=== PATIENT | female | born 1970 | race Caucasian/White ===

== ENCOUNTER 2016-05-23 11:04 | Emergency (ER) | payer MEDICAID, OTHER ==
[~2016-05-23] VITALS: Ht 160 cm; Wt 62.3 kg
[~2016-05-23 11:04] MED LIST: METO-323 PO
[2016-05-23 11:21] LABS: BASOPHILS % (AUTO) 0.6 % (0.0-2.0); EOSINOPHILS % (AUTO) 3.9 % (1.0-6.0); HEMATOCRIT 44.4 % (36-46); HEMOGLOBIN 14.7 g/dL (12.0-16.0); LYMPHOCYTES # (AUTO) 2.5 K/uL (1.0-4.8); LYMPHOCYTES % (AUTO) 33.8 % (22.0-44.0); MEAN CORPUSCULAR HEMOGLOBIN 27.9 pg (26.0-34.0); MEAN CORPUSCULAR HGB CONC 33.2 G/dL (31.0-37.0); MEAN CORPUSCULAR VOLUME 84 fL (80-100); MONOCYTES # (AUTO) 0.9 K/uL (0.1-1.0); MONOCYTES % (AUTO) 12.6 % (2.0-9.0); NEUTROPHILS # (AUTO) 3.7 K/uL (1.8-7.7); NEUTROPHILS % (AUTO) 49.1 % (40.0-70.0); PLATELET COUNT (AUTO) 308 K/uL (150-450); RED BLOOD CELL COUNT(AUTO) 5.29 MIL/uL (4.00-5.20); RED CELL DISTRIBUTION WIDTH 13.6 % (11.5-14.5); WHITE BLOOD COUNT (AUTO) 7.5 K/uL (4.5-11.0)
[2016-05-23] MEDS ORDERED: OMEP10 PO (11:21)
[2016-05-23] MEDS ORDERED: ASPIRIN 81 MG CHEWABLE TABLET PO ONE (11:30)
[2016-05-23 11:31] LABS: ANION GAP 6 mmol/L (8-16); CALCIUM, TOTAL 9.6 mg/dL (8.8-10.5); CARBON DIOXIDE 30 mmol/L (22-29); CHLORIDE 101 mmol/L (98-107); CREATININE 0.86 mg/dL (0.60-1.30); GLOMERULAR FILTR. RATE CALC > 60 mL/min (>60); POTASSIUM 3.9 mmol/L (3.5-5.1); SODIUM SERUM 137 mmol/L (136-145); UREA NITROGEN, BLOOD 12 mg/dL (7-18)
[2016-05-23 11:36] LABS: ALANINE AMINOTRANSFERASE 35 U/L (12-78); ALBUMIN 3.4 g/dL (3.4-5.0); ASPARTATE AMINOTRANSFERASE 18 U/L (15-37); BILIRUBIN,TOTAL 0.2 mg/dL (0.1-1.0); TOTAL PROTEIN, SERUM 7.2 g/dL (6.4-8.2)
[2016-05-23 11:39] LABS: PROTHROMBIN TIME 10.1 SEC (9.4-11.6)
[2016-05-23 11:50] LABS: B-TYPE NATRIURETIC PEPTIDE 8 pg/mL (0-100)
[2016-05-23 12:05] LABS: CREATINE KINASE MB 2.2 ng/mL (0-5); CREATINE KINASE, TOTAL 106 U/L (26-192)
[2016-05-23 12:38] VITALS: BP 141/96
== END 2016-05-23 12:39 | disposition home or self-care (01) ==
LOC: EMS 11:06
DX: R07.89 Other chest pain (principal); K21.9 Gastro-esophageal reflux disease without esophagitis; F15.90 Other stimulant use, unspecified, uncomplicated; F17.210 Nicotine dependence, cigarettes, uncomplicated
CPT/HCPCS: 93005; 99285

== ENCOUNTER 2016-06-06 12:13 | Emergency (ER) | payer MEDICAID ==
[~2016-06-06] VITALS: Ht 160 cm; Wt 63.0 kg
[~2016-06-06 12:13] MED LIST changes: +OMEP10 PO
[2016-06-06] MEDS ORDERED: KETOROLAC TROMETHAMINE 30 MG/ML VIAL IVP ONE (13:15)
[2016-06-06] MEDS ORDERED: SODIUM CHLORIDE 0.9% 1,000 ML IV ONE ×3 (13:15→15:15)
[2016-06-06] MEDS ORDERED: ONDANSETRON HCL 4 MG/2 ML VIAL IVP ONE (13:15)
[2016-06-06 13:26] LABS: HEMATOCRIT 53.7 % (36-46); HEMOGLOBIN 17.4 g/dL (12.0-16.0); MEAN CORPUSCULAR HEMOGLOBIN 27.3 pg (26.0-34.0); MEAN CORPUSCULAR HGB CONC 32.4 G/dL (31.0-37.0); MEAN CORPUSCULAR VOLUME 84 fL (80-100); PLATELET COUNT (AUTO) 377 K/uL (150-450); RED BLOOD CELL COUNT(AUTO) 6.36 MIL/uL (4.00-5.20); RED CELL DISTRIBUTION WIDTH 13.5 % (11.5-14.5); WHITE BLOOD COUNT (AUTO) 21.2 K/uL (4.5-11.0)
[2016-06-06 13:34] LABS: CALCIUM, TOTAL 9.6 mg/dL (8.8-10.5); CREATININE 1.11 mg/dL (0.60-1.30); POTASSIUM 4.1 mmol/L (3.5-5.1)
[2016-06-06 13:40] LABS: ALBUMIN 4.2 g/dL (3.4-5.0); BILIRUBIN,TOTAL 0.4 mg/dL (0.1-1.0); TOTAL PROTEIN, SERUM 8.5 g/dL (6.4-8.2)
[2016-06-06 14:00] LABS: BAND NEUTROPHILS % (MANUAL) 11 % (1-5); LYMPHOCYTES % (MANUAL) 1 % (22-44); REACTIVE LYMPHOCYTES 5 % (0-0); TOTAL CELLS COUNTED 100
[2016-06-06 14:40] LABS: APPEARANCE,URINE CLEAR (CLEAR); GLUCOSE, URINE (UA) NEGATIVE (NEGATIVE); KETONES,URINE NEGATIVE (NEGATIVE); LEUKOCYTE ESTERASE ,URINE NEGATIVE (NEGATIVE); OCCULT BLOOD,URINE NEGATIVE (NEGATIVE); PROTEIN,URINE NEGATIVE (NEGATIVE)
[2016-06-06 14:41] LABS: ADD UA MICROSCOPIC NO
[2016-06-06 16:31] VITALS: BP 120/67
== END 2016-06-06 16:34 | disposition home or self-care (01) ==
LOC: EMS 12:15
DX: R10.9 Unspecified abdominal pain (principal); R11.2 Nausea with vomiting, unspecified; R19.7 Diarrhea, unspecified; F17.210 Nicotine dependence, cigarettes, uncomplicated; F41.9 Anxiety disorder, unspecified; K21.9 Gastro-esophageal reflux disease without esophagitis; I49.9 Cardiac arrhythmia, unspecified
CPT/HCPCS: 36415; 74176; 80053; 81003; 83690; 84703; 85025; 96361; 96374; 96375; 99285; 99406; J1885; J2405; J7030

== ENCOUNTER 2016-07-12 20:30 | Emergency (ER) | payer SELFPAY ==
[~2016-07-12] VITALS: Ht 160 cm; Wt 62.7 kg
[2016-07-12 21:17] LABS: BASOPHILS % (AUTO) 0.2 % (0.0-2.0); EOSINOPHILS % (AUTO) 0.7 % (1.0-6.0); HEMATOCRIT 47.2 % (36-46); HEMOGLOBIN 15.3 g/dL (12.0-16.0); LYMPHOCYTES # (AUTO) 1.2 K/uL (1.0-4.8); MEAN CORPUSCULAR HGB CONC 32.4 G/dL (31.0-37.0); MEAN CORPUSCULAR VOLUME 83 fL (80-100); MONOCYTES # (AUTO) 1.1 K/uL (0.1-1.0); MONOCYTES % (AUTO) 7.7 % (2.0-9.0); NEUTROPHILS # (AUTO) 12.4 K/uL (1.8-7.7); NEUTROPHILS % (AUTO) 83.4 % (40.0-70.0); PLATELET COUNT (AUTO) 357 K/uL (150-450); RED BLOOD CELL COUNT(AUTO) 5.66 MIL/uL (4.00-5.20); RED CELL DISTRIBUTION WIDTH 13.6 % (11.5-14.5); WHITE BLOOD COUNT (AUTO) 14.8 K/uL (4.5-11.0)
[2016-07-12 21:21] LABS: ANION GAP 8 mmol/L (8-16); CALCIUM, TOTAL 8.5 mg/dL (8.8-10.5); CARBON DIOXIDE 30 mmol/L (22-29); CHLORIDE 102 mmol/L (98-107); CREATININE 0.91 mg/dL (0.60-1.30); GLOMERULAR FILTR. RATE CALC > 60 mL/min (>60); SODIUM SERUM 140 mmol/L (136-145); UREA NITROGEN, BLOOD 20 mg/dL (7-18)
[2016-07-12 21:27] LABS: ALANINE AMINOTRANSFERASE 34 U/L (12-78); ALBUMIN 3.6 g/dL (3.4-5.0); ASPARTATE AMINOTRANSFERASE 19 U/L (15-37); BILIRUBIN,TOTAL 0.4 mg/dL (0.1-1.0); TOTAL PROTEIN, SERUM 7.4 g/dL (6.4-8.2)
[2016-07-12] MEDS ORDERED: SODIUM CHLORIDE 0.9% 1,000 ML IV ONE ×2 (21:45→22:45)
[2016-07-12] MEDS ORDERED: ONDANSETRON HCL 4 MG/2 ML VIAL IVP ONE (21:45)
[2016-07-12] MEDS ORDERED: LOPERAMIDE HCL 2 MG CAPSULE PO ONE (23:30)
[2016-07-12 23:57] VITALS: BP 130/70
== END 2016-07-13 00:11 | disposition home or self-care (01) ==
LOC: EMS 20:32
DX: R19.7 Diarrhea, unspecified (principal); F41.9 Anxiety disorder, unspecified; K21.9 Gastro-esophageal reflux disease without esophagitis; F17.210 Nicotine dependence, cigarettes, uncomplicated; Z90.710 Acquired absence of both cervix and uterus; R11.2 Nausea with vomiting, unspecified
CPT/HCPCS: 80053; 83690; 84703; 85025; 96361; 96374; 99284; J2405; J7030

== ENCOUNTER 2016-07-14 13:09 | Emergency (ER) | payer SELFPAY ==
[~2016-07-14] VITALS: Ht 160 cm; Wt 62.3 kg
[2016-07-14 13:10] VITALS: BP 156/107
[2016-07-14] MEDS ORDERED: MORPHINE SULFATE 4 MG/ML SYRINGE IVP ONE (14:00)
[2016-07-14] MEDS ORDERED: SODIUM CHLORIDE 0.9% 1,000 ML IV ONE (14:00)
[2016-07-14] MEDS ORDERED: ONDANSETRON HCL 4 MG/2 ML VIAL IVP ONE (14:00)
[2016-07-14] MEDS ORDERED: DONNATAL/LIDOCAINE/MAALOX 55 ML BOTTLE PO ONE (14:00)
[2016-07-14 14:06] LABS: BASOPHILS % (AUTO) 0.3 % (0.0-2.0); EOSINOPHILS % (AUTO) 1.9 % (1.0-6.0); HEMATOCRIT 43.6 % (36-46); HEMOGLOBIN 14.4 g/dL (12.0-16.0); LYMPHOCYTES # (AUTO) 2.3 K/uL (1.0-4.8); LYMPHOCYTES % (AUTO) 30.9 % (22.0-44.0); MEAN CORPUSCULAR HEMOGLOBIN 27.5 pg (26.0-34.0); MEAN CORPUSCULAR HGB CONC 32.9 G/dL (31.0-37.0); MEAN CORPUSCULAR VOLUME 84 fL (80-100); MONOCYTES # (AUTO) 0.9 K/uL (0.1-1.0); MONOCYTES % (AUTO) 12.3 % (2.0-9.0); NEUTROPHILS # (AUTO) 4.1 K/uL (1.8-7.7); NEUTROPHILS % (AUTO) 54.6 % (40.0-70.0); PLATELET COUNT (AUTO) 330 K/uL (150-450); RED BLOOD CELL COUNT(AUTO) 5.22 MIL/uL (4.00-5.20); RED CELL DISTRIBUTION WIDTH 13.7 % (11.5-14.5); WHITE BLOOD COUNT (AUTO) 7.5 K/uL (4.5-11.0)
[2016-07-14 14:15] LABS: ANION GAP 9 mmol/L (8-16); CALCIUM, TOTAL 8.7 mg/dL (8.8-10.5); CARBON DIOXIDE 27 mmol/L (22-29); CHLORIDE 103 mmol/L (98-107); CREATININE 0.75 mg/dL (0.60-1.30); GLOMERULAR FILTR. RATE CALC > 60 mL/min (>60); POTASSIUM 3.8 mmol/L (3.5-5.1); SODIUM SERUM 139 mmol/L (136-145); UREA NITROGEN, BLOOD 4 mg/dL (7-18)
[2016-07-14 14:19] LABS: SALICYLATE 0.9 mg/dL (2.8-20.0)
[2016-07-14 14:20] LABS: ALANINE AMINOTRANSFERASE 22 U/L (12-78); ALBUMIN 3.3 g/dL (3.4-5.0); ASPARTATE AMINOTRANSFERASE 13 U/L (15-37); BILIRUBIN,TOTAL 0.2 mg/dL (0.1-1.0); TOTAL PROTEIN, SERUM 6.9 g/dL (6.4-8.2)
[2016-07-14 14:30] LABS: ACETAMINOPHEN < 2 mcg/mL (10-30)
== END 2016-07-14 15:19 | disposition home or self-care (01) ==
LOC: EMS 13:10
DX: R10.12 Left upper quadrant pain (principal); R10.32 Left lower quadrant pain; K21.9 Gastro-esophageal reflux disease without esophagitis; F17.210 Nicotine dependence, cigarettes, uncomplicated; F15.90 Other stimulant use, unspecified, uncomplicated
CPT/HCPCS: 36415; 80053; 83690; 84484; 84703; 85025; 93005; 99285; G0480; G0481; Z7610

== ENCOUNTER 2017-05-08 14:40 | Emergency (ER) | payer MEDICAID ==
[~2017-05-08] VITALS: Ht 160 cm; Wt 62.7 kg
[~2017-05-08 14:40] MED LIST changes: -METO-323 PO; +METO25XL PO
[2017-05-08 14:45] VITALS: BP 149/99
[2017-05-08 16:35] LABS: BASOPHILS % (AUTO) 0.8 % (0.0-2.0); EOSINOPHILS % (AUTO) 1.8 % (1.0-6.0); HEMATOCRIT 43.6 % (36-46); HEMOGLOBIN 14.8 g/dL (12.0-16.0); LYMPHOCYTES % (AUTO) 30.7 % (22.0-44.0); MEAN CORPUSCULAR HGB CONC 33.9 G/dL (31.0-37.0); MEAN CORPUSCULAR VOLUME 85 fL (80-100); MONOCYTES # (AUTO) 0.8 K/uL (0.1-1.0); MONOCYTES % (AUTO) 7.8 % (2.0-9.0); NEUTROPHILS # (AUTO) 5.8 K/uL (1.8-7.7); NEUTROPHILS % (AUTO) 58.9 % (40.0-70.0); PLATELET COUNT (AUTO) 399 K/uL (150-450); RED BLOOD CELL COUNT(AUTO) 5.11 MIL/uL (4.00-5.20); RED CELL DISTRIBUTION WIDTH 13.1 % (11.5-14.5)
[2017-05-08 16:51] LABS: ANION GAP 5 mmol/L (8-16); CALCIUM, TOTAL 9.2 mg/dL (8.8-10.5); CARBON DIOXIDE 29 mmol/L (22-29); CHLORIDE 102 mmol/L (98-107); CREATININE 0.96 mg/dL (0.60-1.30); GLOMERULAR FILTR. RATE CALC > 60 mL/min (>60); GLUCOSE,RANDOM 105 mg/dL (70-110); SODIUM SERUM 136 mmol/L (136-145); UREA NITROGEN, BLOOD 17 mg/dL (7-18)
[2017-05-08 16:59] LABS: ALANINE AMINOTRANSFERASE 29 U/L (12-78); ALBUMIN 3.6 g/dL (3.4-5.0); ALKALINE PHOSPHATASE 94 U/L (46-116); ASPARTATE AMINOTRANSFERASE 19 U/L (15-37); BILIRUBIN,TOTAL 0.2 mg/dL (0.1-1.0); TOTAL PROTEIN, SERUM 7.2 g/dL (6.4-8.2)
== END 2017-05-08 17:45 | disposition home or self-care (01) ==
LOC: EMS 14:41
DX: M94.0 Chondrocostal junction syndrome [Tietze] (principal); K21.9 Gastro-esophageal reflux disease without esophagitis; I51.9 Heart disease, unspecified; F17.210 Nicotine dependence, cigarettes, uncomplicated; F15.90 Other stimulant use, unspecified, uncomplicated
CPT/HCPCS: 93005; 99285

== ENCOUNTER 2017-08-31 20:15 | Emergency (ER) | payer MEDICAID ==
[~2017-08-31] VITALS: Ht 160 cm; Wt 62.7 kg
[2017-08-31] MEDS ORDERED: BACL10TA PO (20:25)
[2017-08-31] MEDS ORDERED: IBUP-2070 PO (20:25)
[2017-08-31] MEDS ORDERED: RANI150T7 PO (20:25)
[2017-08-31] MEDS ORDERED: METO25 PO (20:25)
[2017-08-31] MEDS ORDERED: IBUPROFEN 600 MG TABLET PO ONE (21:45)
[2017-08-31] MEDS ORDERED: MetroNIDAZOLE 250 MG TABLET PO ONE (22:45)
[2017-08-31] MEDS ORDERED: FLUCONAZOLE 150 MG TABLET PO ONE (22:45)
[2017-08-31 22:53] VITALS: BP 151/99
== END 2017-08-31 22:56 | disposition home or self-care (01) ==
LOC: EMS 20:17
DX: B37.3 Candidiasis of vulva and vagina (principal); B96.89 Other specified bacterial agents as the cause of diseases classified elsewhere; R51 Headache; R05 Cough; K21.9 Gastro-esophageal reflux disease without esophagitis; F17.210 Nicotine dependence, cigarettes, uncomplicated; F41.9 Anxiety disorder, unspecified; Z90.710 Acquired absence of both cervix and uterus; Z79.899 Other long term (current) drug therapy
CPT/HCPCS: 87210; 87491; 87591; 99284

== ENCOUNTER 2017-09-12 02:18 | Emergency (ER) | payer MEDICAID ==
[~2017-09-12] VITALS: Ht 160 cm; Wt 81.8 kg
[~2017-09-12 02:18] MED LIST changes: +BACL10TA PO; +IBUP-2070 PO; +METO25 PO; -METO25XL PO; -OMEP10 PO; +RANI150T7 PO
[2017-09-12] MEDS ORDERED: PredniSONE 20 MG TABLET PO ONE (05:30)
[2017-09-12] MEDS ORDERED: DiphenhydrAMINE HCL 25 MG CAPSULE PO ONE (05:30)
[2017-09-12 05:47] VITALS: BP 130/78
== END 2017-09-12 05:50 | disposition home or self-care (01) ==
LOC: EMS 02:19
DX: L50.0 Allergic urticaria (principal); F17.210 Nicotine dependence, cigarettes, uncomplicated; K21.9 Gastro-esophageal reflux disease without esophagitis; F15.90 Other stimulant use, unspecified, uncomplicated
CPT/HCPCS: 99283; 99406; J7512

== ENCOUNTER 2017-10-08 01:50 | Emergency (ER) | payer MEDICAID ==
[~2017-10-08] VITALS: Ht 160 cm; Wt 61.8 kg
[2017-10-08] MEDS ORDERED: IBUPROFEN 600 MG TABLET PO ONE (05:15)
[2017-10-08 05:16] VITALS: BP 132/75
== END 2017-10-08 05:31 | disposition home or self-care (01) ==
LOC: EMS 01:50
DX: S13.4XXA Sprain of ligaments of cervical spine, initial encounter (principal); K21.9 Gastro-esophageal reflux disease without esophagitis; F15.90 Other stimulant use, unspecified, uncomplicated; F17.210 Nicotine dependence, cigarettes, uncomplicated; V43.62XA Car passenger injured in collision with other type car in traffic accident, initial encounter; Y93.89 Activity, other specified; Y92.89 Other specified places as the place of occurrence of the external cause; Y99.8 Other external cause status
CPT/HCPCS: 70450; 72125; 99284

== ENCOUNTER 2017-10-16 08:30 | Emergency (ER) | payer MEDICAID ==
[~2017-10-16] VITALS: Ht 160 cm; Wt 61.8 kg
[2017-10-16 09:09] VITALS: BP 146/91
== END 2017-10-16 10:01 | disposition home or self-care (01) ==
LOC: EMS 08:32
DX: S20.212A Contusion of left front wall of thorax, initial encounter (principal); K21.9 Gastro-esophageal reflux disease without esophagitis; F17.210 Nicotine dependence, cigarettes, uncomplicated; F15.90 Other stimulant use, unspecified, uncomplicated; V49.9XXA Car occupant (driver) (passenger) injured in unspecified traffic accident, initial encounter; Y93.89 Activity, other specified; Y92.89 Other specified places as the place of occurrence of the external cause; Y99.8 Other external cause status
CPT/HCPCS: 71046; 93005; 99284

== ENCOUNTER 2018-05-03 23:30 | Emergency (ER) | payer MEDICAID ==
[~2018-05-03] VITALS: Ht 160 cm; Wt 61.8 kg
[~2018-05-03 23:30] MED LIST changes: -IBUP-2070 PO; -RANI150T7 PO
[2018-05-04] MEDS ORDERED: ONDANSETRON HCL 4 MG TABLET PO ONE (02:45)
[2018-05-04] MEDS ORDERED: PB/HYOSCY/ATR/SCOP/LIDO/MAALOX 55 ML BOTTLE PO ONE (04:15)
[2018-05-04 04:39] LABS: BASOPHILS % (AUTO) 0.4 % (0.0-2.0); EOSINOPHILS % (AUTO) 1.2 % (1.0-6.0); HEMATOCRIT 46.7 % (36-46); HEMOGLOBIN 15.5 g/dL (12.0-16.0); LYMPHOCYTES # (AUTO) 2.1 K/uL (1.0-4.8); LYMPHOCYTES % (AUTO) 19.3 % (22.0-44.0); MEAN CORPUSCULAR HEMOGLOBIN 27.8 pg (26.0-34.0); MEAN CORPUSCULAR HGB CONC 33.2 G/dL (31.0-37.0); MEAN CORPUSCULAR VOLUME 84 fL (80-100); MONOCYTES # (AUTO) 1.2 K/uL (0.1-1.0); MONOCYTES % (AUTO) 10.7 % (2.0-9.0); NEUTROPHILS # (AUTO) 7.5 K/uL (1.8-7.7); NEUTROPHILS % (AUTO) 68.4 % (40.0-70.0); PLATELET COUNT (AUTO) 359 K/uL (150-450); RED BLOOD CELL COUNT(AUTO) 5.59 MIL/uL (4.00-5.20); RED CELL DISTRIBUTION WIDTH 14.3 % (11.5-14.5)
[2018-05-04 04:46] LABS: ANION GAP 8 mmol/L (8-16); CALCIUM, TOTAL 9.5 mg/dL (8.8-10.5); CARBON DIOXIDE 29 mmol/L (22-29); CHLORIDE 100 mmol/L (98-107); CREATININE 0.91 mg/dL (0.60-1.30); GLOMERULAR FILTR. RATE CALC > 60 mL/min (>60); GLUCOSE,RANDOM 107 mg/dL (70-110); POTASSIUM 4.3 mmol/L (3.5-5.1); SODIUM SERUM 137 mmol/L (136-145); UREA NITROGEN, BLOOD 19 mg/dL (7-18)
[2018-05-04 04:52] LABS: APPEARANCE,URINE CLOUDY (CLEAR); BILIRUBIN,URINE NEGATIVE (NEGATIVE); GLUCOSE, URINE (UA) NEGATIVE (NEGATIVE); KETONES,URINE NEGATIVE (NEGATIVE); LEUKOCYTE ESTERASE ,URINE NEGATIVE (NEGATIVE); NITRATE,URINE NEGATIVE (NEGATIVE); OCCULT BLOOD,URINE NEGATIVE (NEGATIVE); PH,URINE 5.5 (5.0-8.0); PROTEIN,URINE NEGATIVE (NEGATIVE); UROBILINOGEN,URINE 0.2 mg/dL (<=1.0)
[2018-05-04 04:56] LABS: AMPHET/METH SCREEN,URINE POSITIVE (NEGATIVE); BARBITURATE SCREEN, URINE NEGATIVE (NEGATIVE); BENZODIAZEPINES SCREEN,URINE NEGATIVE (NEGATIVE); CANNABINOID SCREEN,URINE NEGATIVE (NEGATIVE); COCAINE SCREEN,URINE NEGATIVE (NEGATIVE); METHADONE SCREEN, URINE NEGATIVE (NEGATIVE); OPIATE SCREEN,URINE NEGATIVE (NEGATIVE)
[2018-05-04 04:57] LABS: ALANINE AMINOTRANSFERASE 28 U/L (12-78); ALBUMIN 3.5 g/dL (3.4-5.0); ALKALINE PHOSPHATASE 66 U/L (46-116); ASPARTATE AMINOTRANSFERASE 16 U/L (15-37); BILIRUBIN,TOTAL 0.4 mg/dL (0.1-1.0); HCG,QUANTITATIVE < 1 mIU/mL (0-6); LIPASE 133 U/L (73-393)
[2018-05-04 04:57] LABS: PHENCYCLIDINE SCREEN,URINE NEGATIVE (NEGATIVE)
[2018-05-04 05:29] VITALS: BP 135/88
== END 2018-05-04 05:36 | disposition home or self-care (01) ==
LOC: EMS 23:31
DX: K52.9 Noninfective gastroenteritis and colitis, unspecified (principal); K21.9 Gastro-esophageal reflux disease without esophagitis; F41.9 Anxiety disorder, unspecified; F17.210 Nicotine dependence, cigarettes, uncomplicated; F15.90 Other stimulant use, unspecified, uncomplicated; Z90.710 Acquired absence of both cervix and uterus; Z79.899 Other long term (current) drug therapy
CPT/HCPCS: 36415; 80053; 80307; 81003; 83690; 84702; 85025; 99283; Q0162

== ENCOUNTER 2018-08-01 02:45 | Emergency (ER) | payer MEDICAID ==
[~2018-08-01] VITALS: Ht 160 cm; Wt 61.8 kg
[2018-08-01 02:50] VITALS: BP 164/134
== END 2018-08-01 02:58 | disposition left against medical advice (07) ==
LOC: EMS 02:46
DX: R20.0 Anesthesia of skin (principal); Z53.21 Procedure and treatment not carried out due to patient leaving prior to being seen by health care provider

== ENCOUNTER 2018-11-08 23:35 | Emergency (ER) | payer MEDICAID ==
[~2018-11-08] VITALS: Ht 160 cm; Wt 25.8 kg
[2018-11-08] MEDS ORDERED: RANI150T7 PO (23:44)
[2018-11-08] MEDS ORDERED: METO25 PO (23:44)
[2018-11-08 23:55] LABS: BASOPHILS % (AUTO) 0.8 % (0.0-2.0); EOSINOPHILS % (AUTO) 2.2 % (1.0-6.0); HEMATOCRIT 42.6 % (36-46); HEMOGLOBIN 13.8 g/dL (12.0-16.0); LYMPHOCYTES # (AUTO) 3.1 K/uL (1.0-4.8); LYMPHOCYTES % (AUTO) 34.5 % (22.0-44.0); MEAN CORPUSCULAR HEMOGLOBIN 27.1 pg (26.0-34.0); MEAN CORPUSCULAR HGB CONC 32.3 G/dL (31.0-37.0); MEAN CORPUSCULAR VOLUME 84 fL (80-100); MONOCYTES # (AUTO) 1.1 K/uL (0.1-1.0); MONOCYTES % (AUTO) 12.8 % (2.0-9.0); NEUTROPHILS # (AUTO) 4.5 K/uL (1.8-7.7); NEUTROPHILS % (AUTO) 49.7 % (40.0-70.0); PLATELET COUNT (AUTO) 345 K/uL (150-450); RED BLOOD CELL COUNT(AUTO) 5.08 MIL/uL (4.00-5.20)
[2018-11-09 00:09] LABS: ANION GAP 10 mmol/L (8-16); CARBON DIOXIDE 27 mmol/L (22-29); CHLORIDE 103 mmol/L (98-107); CREATININE 1.11 mg/dL (0.60-1.30); GLOMERULAR FILTR. RATE CALC 52 mL/min (>60); GLUCOSE,RANDOM 79 mg/dL (70-110); POTASSIUM 3.9 mmol/L (3.5-5.1); SODIUM SERUM 140 mmol/L (136-145); UREA NITROGEN, BLOOD 13 mg/dL (7-18)
[2018-11-09 00:16] LABS: ALANINE AMINOTRANSFERASE 30 U/L (12-78); ALBUMIN 3.8 g/dL (3.4-5.0); ALKALINE PHOSPHATASE 78 U/L (46-116); ASPARTATE AMINOTRANSFERASE 33 U/L (15-37); BILIRUBIN,TOTAL 0.3 mg/dL (0.1-1.0); TOTAL PROTEIN, SERUM 7.2 g/dL (6.4-8.2)
[2018-11-09] MEDS ORDERED: METOPROLOL SUCCINATE 25 MG ER TABLET PO ONE (00:45)
[2018-11-09] MEDS ORDERED: IBUPROFEN 800 MG TABLET PO ONE (00:45)
[2018-11-09 01:00] VITALS: BP 163/97
[2018-11-09] MEDS ORDERED: LORazepam 1 MG TABLET PO ONE (01:00)
[2018-11-09 01:07] LABS: HCG,QUANTITATIVE < 1 mIU/mL (0-6)
== END 2018-11-09 01:52 | disposition home or self-care (01) ==
LOC: EMS 23:36
DX: F41.9 Anxiety disorder, unspecified (principal); R07.9 Chest pain, unspecified; I10 Essential (primary) hypertension; K21.9 Gastro-esophageal reflux disease without esophagitis; F15.90 Other stimulant use, unspecified, uncomplicated; F17.210 Nicotine dependence, cigarettes, uncomplicated; Z79.899 Other long term (current) drug therapy
CPT/HCPCS: 93005

== ENCOUNTER 2018-12-10 16:21 | Inpatient (IN) | payer MEDICAID ==
[~2018-12-10] VITALS: Ht 160 cm; Wt 56.3 kg
[~2018-12-10 16:21] MED LIST changes: -BACL10TA PO; +RANI150T7 PO
[2018-12-10] MEDS ORDERED: BP MEDS PO (16:28)
[2018-12-10] MEDS ORDERED: METOPROLOL TARTRATE 5 MG/5 ML VIAL IVP ONE (16:45)
[2018-12-10 16:47] LABS: BASOPHILS % (AUTO) 0.7 % (0.0-2.0); EOSINOPHILS % (AUTO) 1.4 % (1.0-6.0); HEMATOCRIT 44.7 % (36-46); HEMOGLOBIN 14.6 g/dL (12.0-16.0); LYMPHOCYTES # (AUTO) 3.4 K/uL (1.0-4.8); LYMPHOCYTES % (AUTO) 34.3 % (22.0-44.0); MEAN CORPUSCULAR HEMOGLOBIN 27.4 pg (26.0-34.0); MEAN CORPUSCULAR HGB CONC 32.6 G/dL (31.0-37.0); MEAN CORPUSCULAR VOLUME 84 fL (80-100); MONOCYTES # (AUTO) 1.2 K/uL (0.1-1.0); MONOCYTES % (AUTO) 11.9 % (2.0-9.0); NEUTROPHILS # (AUTO) 5.1 K/uL (1.8-7.7); NEUTROPHILS % (AUTO) 51.7 % (40.0-70.0); PLATELET COUNT (AUTO) 333 K/uL (150-450); RED BLOOD CELL COUNT(AUTO) 5.32 MIL/uL (4.00-5.20); RED CELL DISTRIBUTION WIDTH 14.6 % (11.5-14.5)
[2018-12-10 17:07] LABS: ALANINE AMINOTRANSFERASE 20 U/L (12-78); ALBUMIN 4.1 g/dL (3.4-5.0); ALKALINE PHOSPHATASE 78 U/L (46-116); ANION GAP 8 mmol/L (8-16); ASPARTATE AMINOTRANSFERASE 18 U/L (15-37); BILIRUBIN,TOTAL 0.3 mg/dL (0.1-1.0); CALCIUM, TOTAL 9.8 mg/dL (8.8-10.5); CARBON DIOXIDE 29 mmol/L (22-29); CHLORIDE 98 mmol/L (98-107); CREATININE 1.51 mg/dL (0.60-1.30); GLOMERULAR FILTR. RATE CALC 37 mL/min (>60); GLUCOSE,RANDOM 124 mg/dL (70-110); HCG,QUANTITATIVE < 1 mIU/mL (0-6); SODIUM SERUM 135 mmol/L (136-145); TOTAL PROTEIN, SERUM 7.5 g/dL (6.4-8.2); UREA NITROGEN, BLOOD 19 mg/dL (7-18)
[2018-12-10 17:09] LABS: POTASSIUM 2.7 mmol/L (3.5-5.1)
[2018-12-10] MEDS ORDERED: POTASSIUM CHLORIDE 20 MEQ ER TABLET PO ONE (17:15)
[2018-12-10] MEDS ORDERED: HydrALAZINE HCL 20 MG/ML VIAL IVP ONE (18:00)
[2018-12-10] MEDS ORDERED: 0.9% SODIUM CHLORIDE 10 ML SYRINGE IVP PRN ×2 (19:00→23:00)
[2018-12-10] MEDS ORDERED: ONDANSETRON HCL 4 MG/2 ML VIAL IVP PRN ×2 (19:00→23:00)
[2018-12-10] MEDS ORDERED: ACETAMINOPHEN 325 MG TABLET PO PRN ×2 (19:00→23:00)
[2018-12-10 20:30] VITALS: BP 143/99
[2018-12-10] MEDS: NICOTINE 21 MG/24 HOUR PATCH TD SCH (22:00)
[2018-12-10] MEDS ORDERED: MAGNESIUM HYDROXIDE SUSPENSION 30 ML UDCUP PO PRN (23:00)
[2018-12-10] MEDS: DOCUSATE SODIUM 100 MG CAPSULE PO SCH (23:00)
[2018-12-10] MEDS ORDERED: OxyCODONE HCL/ACETAMINOPHEN 5-325 MG TABLET PO PRN ×2 (23:00)
[2018-12-10 23:21] VITALS: BP 152/99
[2018-12-11 04:09] VITALS: BP 150/88
[2018-12-11 05:19] LABS: BASOPHILS % (AUTO) 1.1 % (0.0-2.0); EOSINOPHILS % (AUTO) 3.7 % (1.0-6.0); HEMATOCRIT 44.3 % (36-46); HEMOGLOBIN 14.6 g/dL (12.0-16.0); LYMPHOCYTES # (AUTO) 2.9 K/uL (1.0-4.8); LYMPHOCYTES % (AUTO) 38.8 % (22.0-44.0); MEAN CORPUSCULAR HEMOGLOBIN 27.8 pg (26.0-34.0); MEAN CORPUSCULAR HGB CONC 32.9 G/dL (31.0-37.0); MEAN CORPUSCULAR VOLUME 84 fL (80-100); MONOCYTES # (AUTO) 1.1 K/uL (0.1-1.0); MONOCYTES % (AUTO) 14.2 % (2.0-9.0); NEUTROPHILS # (AUTO) 3.2 K/uL (1.8-7.7); NEUTROPHILS % (AUTO) 42.2 % (40.0-70.0); PLATELET COUNT (AUTO) 304 K/uL (150-450); RED BLOOD CELL COUNT(AUTO) 5.25 MIL/uL (4.00-5.20); RED CELL DISTRIBUTION WIDTH 14.7 % (11.5-14.5)
[2018-12-11 05:39] LABS: ALBUMIN 3.6 g/dL (3.4-5.0); BILIRUBIN,TOTAL 0.3 mg/dL (0.1-1.0); CALCIUM, TOTAL 9.7 mg/dL (8.8-10.5); CREATININE 1.16 mg/dL (0.60-1.30); POTASSIUM 3.4 mmol/L (3.5-5.1); TOTAL PROTEIN, SERUM 6.9 g/dL (6.4-8.2)
[2018-12-11 07:30] VITALS: BP 153/101
[2018-12-11] MEDS: DOCUSATE SODIUM 100 MG CAPSULE PO SCH (07:49)
[2018-12-11] MEDS: NICOTINE 21 MG/24 HOUR PATCH TD SCH ×2 (07:50→12:50)
[2018-12-11] MEDS ORDERED: POTASSIUM CHLORIDE 20 MEQ ER TABLET PO ONE (08:30)
[2018-12-11] MEDS ORDERED: FAMOTIDINE 10 MG/ML 2 ML VIAL IVP SCH (09:00)
[2018-12-11] MEDS ORDERED: AmLODIPine BESYLATE 10 MG TABLET PO SCH (09:00)
[2018-12-11] MEDS: LABETALOL HCL 200 MG TABLET PO SCH ×2 (09:36→16:07)
[2018-12-11 11:38] VITALS: BP 132/88
[2018-12-11] MEDS ORDERED: LABE200T6 PO (14:25)
[2018-12-11] MEDS ORDERED: AMLO10TA7 PO (14:25)
== END 2018-12-11 16:45 | disposition home or self-care (01) | DRG 199 ==
LOC: EMS 16:24 → 5S 20:30
PROVIDERS: ADMIT Internal Medicine; ATTEND Internal Medicine
DX: I16.0 Hypertensive urgency (principal); N17.9 Acute kidney failure, unspecified; N18.3 Chronic kidney disease, stage 3 (moderate); E26.9 Hyperaldosteronism, unspecified; I12.9 Hypertensive chronic kidney disease with stage 1 through stage 4 chronic kidney disease, or unspecified chronic kidney disease; E87.6 Hypokalemia; I49.3 Ventricular premature depolarization; K21.9 Gastro-esophageal reflux disease without esophagitis; F41.9 Anxiety disorder, unspecified; F15.90 Other stimulant use, unspecified, uncomplicated; F17.210 Nicotine dependence, cigarettes, uncomplicated; Z90.710 Acquired absence of both cervix and uterus
CPT/HCPCS: 70450; 76770; 93005; 93306; 99291; G0378; J0360; J3490

== ENCOUNTER 2019-02-23 06:48 | Inpatient (IN) | payer MEDICAID ==
[~2019-02-23] VITALS: Ht 160 cm; Wt 59.6 kg
[~2019-02-23 06:48] MED LIST changes: +AMLO10TA7 PO; +LABE200T6 PO; -METO25 PO
[2019-02-23] MEDS ORDERED: SODIUM CHLORIDE 0.9% 1,000 ML IV ONE ×2 (07:28→11:45)
[2019-02-23] MEDS ORDERED: ONDANSETRON HCL 4 MG/2 ML VIAL IVP ONE (07:30)
[2019-02-23] MEDS ORDERED: HydrALAZINE HCL 20 MG/ML VIAL IVP ONE ×2 (08:00→11:45)
[2019-02-23 08:02] LABS: BASOPHILS % (AUTO) 0.2 % (0.0-2.0); EOSINOPHILS % (AUTO) 0.2 % (1.0-6.0); HEMATOCRIT 44.4 % (36-46); HEMOGLOBIN 14.9 g/dL (12.0-16.0); LYMPHOCYTES # (AUTO) 1.5 K/uL (1.0-4.8); LYMPHOCYTES % (AUTO) 8.4 % (22.0-44.0); MEAN CORPUSCULAR HEMOGLOBIN 28.2 pg (26.0-34.0); MEAN CORPUSCULAR HGB CONC 33.6 G/dL (31.0-37.0); MEAN CORPUSCULAR VOLUME 84 fL (80-100); MONOCYTES # (AUTO) 1.3 K/uL (0.1-1.0); MONOCYTES % (AUTO) 7.2 % (2.0-9.0); NEUTROPHILS # (AUTO) 15.4 K/uL (1.8-7.7); PLATELET COUNT (AUTO) 337 K/uL (150-450); RED BLOOD CELL COUNT(AUTO) 5.29 MIL/uL (4.00-5.20); RED CELL DISTRIBUTION WIDTH 13.8 % (11.5-14.5)
[2019-02-23 08:10] LABS: ANION GAP 6 mmol/L (8-16); CARBON DIOXIDE 27 mmol/L (22-29); CHLORIDE 100 mmol/L (98-107); CREATININE 0.84 mg/dL (0.60-1.30); GLOMERULAR FILTR. RATE CALC > 60 mL/min (>60); GLUCOSE,RANDOM 98 mg/dL (70-110); POTASSIUM 3.5 mmol/L (3.5-5.1); SODIUM SERUM 133 mmol/L (136-145); UREA NITROGEN, BLOOD 18 mg/dL (7-18)
[2019-02-23 08:22] LABS: ALANINE AMINOTRANSFERASE 31 U/L (12-78); ALBUMIN 3.9 g/dL (3.4-5.0); ALKALINE PHOSPHATASE 82 U/L (46-116); ASPARTATE AMINOTRANSFERASE 17 U/L (15-37); BILIRUBIN,TOTAL 0.2 mg/dL (0.1-1.0); HCG,QUANTITATIVE < 1 mIU/mL (0-6); LIPASE 95 U/L (73-393); TOTAL PROTEIN, SERUM 7.6 g/dL (6.4-8.2)
[2019-02-23 08:43] LABS: APPEARANCE,URINE CLOUDY (CLEAR); BILIRUBIN,URINE NEGATIVE (NEGATIVE); GLUCOSE, URINE (UA) NEGATIVE (NEGATIVE); KETONES,URINE NEGATIVE (NEGATIVE); LEUKOCYTE ESTERASE ,URINE SMALL (NEGATIVE); NITRATE,URINE NEGATIVE (NEGATIVE); OCCULT BLOOD,URINE SMALL (NEGATIVE); PH,URINE 5.5 (5.0-8.0); PROTEIN,URINE NEGATIVE (NEGATIVE); UROBILINOGEN,URINE 0.2 mg/dL (<=1.0)
[2019-02-23 08:50] LABS: AMPHET/METH SCREEN,URINE POSITIVE (NEGATIVE); BARBITURATE SCREEN, URINE NEGATIVE (NEGATIVE); BENZODIAZEPINES SCREEN,URINE NEGATIVE (NEGATIVE); CANNABINOID SCREEN,URINE NEGATIVE (NEGATIVE); COCAINE SCREEN,URINE NEGATIVE (NEGATIVE); METHADONE SCREEN, URINE NEGATIVE (NEGATIVE); OPIATE SCREEN,URINE NEGATIVE (NEGATIVE)
[2019-02-23 08:52] LABS: PHENCYCLIDINE SCREEN,URINE NEGATIVE (NEGATIVE)
[2019-02-23] MEDS ORDERED: LORazepam 2 MG/ML VIAL IVP ONE ×2 (09:00→11:00)
[2019-02-23 09:10] LABS: BACTERIA,URINE Few /HPF (None Seen); RBC,URINE 0-2 /HPF (0-2); SQUAMOUS EPITHELIAL CELL,UR Moderate /LPF (None Seen)
[2019-02-23] MEDS ORDERED: SODIUM CHLORIDE 0.9% 100 ML ONE (09:52)
[2019-02-23] MEDS ORDERED: IOVERSOL 320 MG/ML 100 ML VIAL ONE (09:52)
[2019-02-23 10:10] LABS: INFLUENZA TYPE A NEGATIVE FOR TYPE A (NEGATIVE); INFLUENZA TYPE B NEGATIVE FOR TYPE B (NEGATIVE)
[2019-02-23] MEDS ORDERED: MetroNIDAZOLE 500 MG/NACL 100 ML IV ONE (11:45)
[2019-02-23] MEDS ORDERED: CIPROFLOXACIN 400 MG/D5% WATER 200 ML IV ONE (11:45)
[2019-02-23] MEDS ORDERED: ACETAMINOPHEN 325 MG TABLET PO PRN ×2 (13:15→14:15)
[2019-02-23] MEDS ORDERED: ONDANSETRON HCL 4 MG/2 ML VIAL IVP PRN ×2 (13:15→14:15)
[2019-02-23] MEDS ORDERED: 0.9% SODIUM CHLORIDE 10 ML SYRINGE IVP PRN (13:15)
[2019-02-23] MEDS ORDERED: ZOLPIDEM TARTRATE 5 MG TABLET PO PRN (14:15)
[2019-02-23] MEDS ORDERED: LORazepam 2 MG/ML VIAL IVP PRN (14:15)
[2019-02-23] MEDS ORDERED: BISACODYL 10 MG RECTAL RECTAL SUPPOSITORY PR PRN (14:15)
[2019-02-23] MEDS ORDERED: MAGNESIUM SULFATE 2 GM, MVI, ADULT NO.1 WITH VIT K 10 ML, THIAMINE HCL 100 MG, FOLIC AC... IV ONE ×5 (14:15)
[2019-02-23] MEDS ORDERED: LOPERAMIDE HCL 2 MG CAPSULE PO PRN ×2 (14:15→16:00)
[2019-02-23] MEDS ORDERED: DICYCLOMINE HCL 10 MG CAPSULE PO PRN ×2 (14:15→16:00)
[2019-02-23] MEDS ORDERED: MAGNESIUM HYDROXIDE SUSPENSION 30 ML UDCUP PO PRN (14:15)
[2019-02-23] MEDS ORDERED: METOCLOPRAMIDE HCL 5 MG/ML 2 ML VIAL IVP PRN (14:15)
[2019-02-23] MEDS: AmLODIPine BESYLATE 5 MG TABLET PO SCH (15:19)
[2019-02-23 16:41] VITALS: BP 149/102
[2019-02-23 17:15] VITALS: BP 161/85
[2019-02-23] MEDS: HEPARIN SODIUM,PORCINE 5,000 UNITS/ML VIAL SQ SCH ×2 (17:47→23:04)
[2019-02-23] MEDS: LABETALOL HCL 200 MG TABLET PO SCH ×2 (17:47→19:55)
[2019-02-23] MEDS ORDERED: PNEUMOCOCCAL VACCINE POLYVALENT 0.5 ML VIAL [PPSV23] IM ONE (18:30)
[2019-02-23] MEDS ORDERED: INFLUENZA VIRUS VACCINE QVS 2019-20 (3YR+)/PF 60 MCG/0.5 ML SYRINGE IM ONE (18:30)
[2019-02-23 20:50] VITALS: BP 124/76
[2019-02-23] MEDS ORDERED: TEMAZEPAM 15 MG CAPSULE PO SCH (21:00)
[2019-02-23] MEDS: TEMAZEPAM 15 MG CAPSULE PO SCH (22:01)
[2019-02-24 00:24] VITALS: BP 129/81
[2019-02-24 05:02] VITALS: BP 130/74
[2019-02-24 07:32] VITALS: BP 132/77
[2019-02-24] MEDS: HEPARIN SODIUM,PORCINE 5,000 UNITS/ML VIAL SQ SCH ×2 (07:57→15:39)
[2019-02-24] MEDS: PANTOPRAZOLE SODIUM 40 MG DR TABLET PO SCH (08:01)
[2019-02-24] MEDS: LABETALOL HCL 200 MG TABLET PO SCH ×3 (08:01→21:44)
[2019-02-24] MEDS: AmLODIPine BESYLATE 5 MG TABLET PO SCH (08:01)
[2019-02-24 11:15] VITALS: BP 115/65
[2019-02-24 15:36] VITALS: BP 134/80
[2019-02-24 19:10] VITALS: BP 120/71
[2019-02-24] MEDS: TEMAZEPAM 15 MG CAPSULE PO SCH (21:44)
[2019-02-25 00:11] VITALS: BP 105/64
[2019-02-25 04:16] VITALS: BP 138/78
[2019-02-25 08:13] VITALS: BP 125/84
[2019-02-25] MEDS: HEPARIN SODIUM,PORCINE 5,000 UNITS/ML VIAL SQ SCH ×2 (09:24)
[2019-02-25] MEDS: AmLODIPine BESYLATE 5 MG TABLET PO SCH (09:24)
[2019-02-25] MEDS: PANTOPRAZOLE SODIUM 40 MG DR TABLET PO SCH (09:24)
[2019-02-25] MEDS: LABETALOL HCL 200 MG TABLET PO SCH (09:26)
[2019-02-25 12:01] VITALS: BP 123/70
[2019-02-25 15:00] LABS: BASOPHILS % (AUTO) 0.8 % (0.0-2.0); EOSINOPHILS % (AUTO) 6.4 % (1.0-6.0); HEMATOCRIT 38.1 % (36-46); HEMOGLOBIN 12.8 g/dL (12.0-16.0); LYMPHOCYTES # (AUTO) 1.4 K/uL (1.0-4.8); LYMPHOCYTES % (AUTO) 23.5 % (22.0-44.0); MEAN CORPUSCULAR HEMOGLOBIN 28.5 pg (26.0-34.0); MEAN CORPUSCULAR HGB CONC 33.5 G/dL (31.0-37.0); MEAN CORPUSCULAR VOLUME 85 fL (80-100); MONOCYTES # (AUTO) 0.7 K/uL (0.1-1.0); MONOCYTES % (AUTO) 12.1 % (2.0-9.0); NEUTROPHILS # (AUTO) 3.4 K/uL (1.8-7.7); NEUTROPHILS % (AUTO) 57.2 % (40.0-70.0); PLATELET COUNT (AUTO) 308 K/uL (150-450); RED BLOOD CELL COUNT(AUTO) 4.49 MIL/uL (4.00-5.20); RED CELL DISTRIBUTION WIDTH 13.9 % (11.5-14.5)
[2019-02-25 15:52] VITALS: BP 130/72
== END 2019-02-25 17:00 | disposition home or self-care (01) | DRG 199 ==
LOC: EMS 06:49 → 5S 15:47 → EMS 15:50
PROVIDERS: ADMIT Internal Medicine; ATTEND Internal Medicine
DX: I16.0 Hypertensive urgency (principal); R65.10 Systemic inflammatory response syndrome (SIRS) of non-infectious origin without acute organ dysfunction; D72.829 Elevated white blood cell count, unspecified; F15.10 Other stimulant abuse, uncomplicated; K29.80 Duodenitis without bleeding; K21.9 Gastro-esophageal reflux disease without esophagitis; F17.210 Nicotine dependence, cigarettes, uncomplicated; Z91.14 Patient's other noncompliance with medication regimen; Z90.710 Acquired absence of both cervix and uterus; Z79.899 Other long term (current) drug therapy
CPT/HCPCS: 70450; 74177; 87040; 87804; 93005; 96374; 96375; G0378; J0360; J0744; J1644; J2060; J2405; J3411; J3475; J3490; J7030; J7050

== ENCOUNTER 2019-06-11 02:44 | Inpatient (IN) | payer MEDICAID ==
[~2019-06-11] VITALS: Ht 160 cm; Wt 60.8 kg
[2019-06-11] MEDS ORDERED: SODIUM CHLORIDE 0.9% 1,000 ML IV ONE ×2 (03:09→08:00)
[2019-06-11] MEDS ORDERED: ONDANSETRON HCL 4 MG/2 ML VIAL IVP ONE (03:15)
[2019-06-11 03:39] LABS: BASOPHILS % (AUTO) 0.4 % (0.0-2.0); EOSINOPHILS % (AUTO) 2.9 % (1.0-6.0); HEMATOCRIT 38.6 % (36-46); HEMOGLOBIN 12.8 g/dL (12.0-16.0); LYMPHOCYTES # (AUTO) 2.1 K/uL (1.0-4.8); LYMPHOCYTES % (AUTO) 26.4 % (22.0-44.0); MEAN CORPUSCULAR HEMOGLOBIN 27.5 pg (26.0-34.0); MEAN CORPUSCULAR HGB CONC 33.3 G/dL (31.0-37.0); MEAN CORPUSCULAR VOLUME 83 fL (80-100); MONOCYTES # (AUTO) 0.9 K/uL (0.1-1.0); MONOCYTES % (AUTO) 11.9 % (2.0-9.0); NEUTROPHILS # (AUTO) 4.6 K/uL (1.8-7.7); NEUTROPHILS % (AUTO) 58.4 % (40.0-70.0); PLATELET COUNT (AUTO) 356 K/uL (150-450); RED BLOOD CELL COUNT(AUTO) 4.67 MIL/uL (4.00-5.20); RED CELL DISTRIBUTION WIDTH 14.6 % (11.5-14.5)
[2019-06-11 03:50] LABS: ANION GAP 4 mmol/L (8-16); CALCIUM, TOTAL 11.2 mg/dL (8.8-10.5); CARBON DIOXIDE 31 mmol/L (22-29); CHLORIDE 102 mmol/L (98-107); CREATININE 0.82 mg/dL (0.60-1.30); GLOMERULAR FILTR. RATE CALC > 60 mL/min (>60); GLUCOSE,RANDOM 90 mg/dL (70-110); POTASSIUM 3.3 mmol/L (3.5-5.1); SODIUM SERUM 137 mmol/L (136-145); UREA NITROGEN, BLOOD 8 mg/dL (7-18)
[2019-06-11 03:58] LABS: PROTHROMBIN TIME 9.7 SEC (9.4-11.6)
[2019-06-11] MEDS ORDERED: MORPHINE SULFATE 4 MG/ML SYRINGE IVP ONE (04:00)
[2019-06-11 04:15] LABS: ALANINE AMINOTRANSFERASE 27 U/L (12-78); ALBUMIN 3.2 g/dL (3.4-5.0); ALKALINE PHOSPHATASE 80 U/L (46-116); ASPARTATE AMINOTRANSFERASE 17 U/L (15-37); BILIRUBIN,TOTAL 0.2 mg/dL (0.1-1.0); HCG,QUANTITATIVE < 1 mIU/mL (0-6); LIPASE 70 U/L (73-393); TOTAL PROTEIN, SERUM 6.8 g/dL (6.4-8.2)
[2019-06-11] MEDS ORDERED: IOVERSOL 350 MG/ML 100 ML VIAL ONE (04:41)
[2019-06-11] MEDS ORDERED: SODIUM CHLORIDE 0.9% 100 ML ONE (04:41)
[2019-06-11] MEDS ORDERED: PANTOPRAZOLE SODIUM 40 MG/VIAL IVP ONE (06:00)
[2019-06-11] MEDS ORDERED: MetroNIDAZOLE 250 MG TABLET PO ONE (06:00)
[2019-06-11 06:08] LABS: APPEARANCE,URINE CLEAR (CLEAR); BILIRUBIN,URINE NEGATIVE (NEGATIVE); GLUCOSE, URINE (UA) NEGATIVE (NEGATIVE); KETONES,URINE NEGATIVE (NEGATIVE); LEUKOCYTE ESTERASE ,URINE NEGATIVE (NEGATIVE); NITRATE,URINE NEGATIVE (NEGATIVE); OCCULT BLOOD,URINE NEGATIVE (NEGATIVE); PROTEIN,URINE NEGATIVE (NEGATIVE); UROBILINOGEN,URINE 0.2 mg/dL (<=1.0)
[2019-06-11 06:14] LABS: AMPHET/METH SCREEN,URINE POSITIVE (NEGATIVE); BARBITURATE SCREEN, URINE NEGATIVE (NEGATIVE); BENZODIAZEPINES SCREEN,URINE NEGATIVE (NEGATIVE); CANNABINOID SCREEN,URINE NEGATIVE (NEGATIVE); COCAINE SCREEN,URINE NEGATIVE (NEGATIVE); METHADONE SCREEN, URINE NEGATIVE (NEGATIVE); OPIATE SCREEN,URINE NEGATIVE (NEGATIVE)
[2019-06-11 06:22] LABS: PHENCYCLIDINE SCREEN,URINE NEGATIVE (NEGATIVE)
[2019-06-11] MEDS ORDERED: ONDANSETRON HCL 4 MG/2 ML VIAL IVP PRN (06:30)
[2019-06-11] MEDS ORDERED: 0.9% SODIUM CHLORIDE 10 ML SYRINGE IVP PRN (06:30)
[2019-06-11] MEDS ORDERED: ACETAMINOPHEN 325 MG TABLET PO PRN ×2 (06:30→08:00)
[2019-06-11] MEDS ORDERED: LORazepam 2 MG/ML VIAL IVP PRN (08:00)
[2019-06-11] MEDS ORDERED: POTASSIUM CHL 10 MEQ/WATER 50 ML IV PRN (08:00)
[2019-06-11] MEDS: DOCUSATE SODIUM 100 MG CAPSULE PO SCH ×2 (08:22→20:13)
[2019-06-11] MEDS: FAMOTIDINE 20 MG TABLET PO SCH ×2 (08:22→11:19)
[2019-06-11] MEDS: POTASSIUM CHLORIDE 20 MEQ ER TABLET PO PRN ×2 (11:21→20:17)
[2019-06-11 11:44] VITALS: BP 155/77
[2019-06-11] MEDS ORDERED: SODIUM CHLORIDE 0.9% 1,000 ML ONE (16:02)
[2019-06-11] MEDS ORDERED: MIDAZOLAM HCL 5 MG/ML VIAL ONE (16:03)
[2019-06-11] MEDS ORDERED: FentaNYL CITRATE-PF 100 MCG/2 ML VIAL ONE (16:03)
[2019-06-11 16:06] VITALS: BP 144/79
[2019-06-11] MEDS: AmLODIPine BESYLATE 10 MG TABLET PO SCH (17:50)
[2019-06-11] MEDS: PANTOPRAZOLE SODIUM 40 MG DR TABLET PO SCH (20:17)
[2019-06-11 20:23] VITALS: BP 152/90
[2019-06-12 00:14] VITALS: BP 120/69
[2019-06-12] MEDS: POTASSIUM CHLORIDE 20 MEQ ER TABLET PO PRN ×2 (01:56→06:57)
[2019-06-12 05:34] VITALS: BP 134/84
[2019-06-12 06:38] LABS: BASOPHILS % (AUTO) 0.3 % (0.0-2.0); EOSINOPHILS % (AUTO) 3.5 % (1.0-6.0); HEMOGLOBIN 12.3 g/dL (12.0-16.0); LYMPHOCYTES # (AUTO) 1.8 K/uL (1.0-4.8); LYMPHOCYTES % (AUTO) 17.8 % (22.0-44.0); MEAN CORPUSCULAR HEMOGLOBIN 27.5 pg (26.0-34.0); MEAN CORPUSCULAR HGB CONC 33.3 G/dL (31.0-37.0); MEAN CORPUSCULAR VOLUME 83 fL (80-100); MONOCYTES # (AUTO) 1.2 K/uL (0.1-1.0); MONOCYTES % (AUTO) 12.4 % (2.0-9.0); NEUTROPHILS # (AUTO) 6.7 K/uL (1.8-7.7); PLATELET COUNT (AUTO) 328 K/uL (150-450); RED BLOOD CELL COUNT(AUTO) 4.47 MIL/uL (4.00-5.20); RED CELL DISTRIBUTION WIDTH 14.4 % (11.5-14.5)
[2019-06-12 07:48] VITALS: BP 128/80
[2019-06-12] MEDS: PANTOPRAZOLE SODIUM 40 MG DR TABLET PO SCH (08:22)
[2019-06-12] MEDS: AmLODIPine BESYLATE 10 MG TABLET PO SCH (08:22)
[2019-06-12] MEDS: DOCUSATE SODIUM 100 MG CAPSULE PO SCH (09:00)
[2019-06-12 11:32] VITALS: BP 123/74
== END 2019-06-12 14:15 | disposition home or self-care (01) | DRG 254 ==
LOC: EMS 02:44 → 5N 07:28
PROVIDERS: ADMIT Internal Medicine; ATTEND Internal Medicine
PROC: 0DB68ZX Excision of Stomach, Via Natural or Artificial Opening Endoscopic, Diagnostic (ICD-10-PCS; 2019-06-11)
PROC: 0DB98ZX Excision of Duodenum, Via Natural or Artificial Opening Endoscopic, Diagnostic (ICD-10-PCS; principal; 2019-06-11 17:00)
DX: K64.8 Other hemorrhoids (principal); E43 Unspecified severe protein-calorie malnutrition; K62.5 Hemorrhage of anus and rectum; E87.6 Hypokalemia; K44.9 Diaphragmatic hernia without obstruction or gangrene; L53.8 Other specified erythematous conditions; F17.210 Nicotine dependence, cigarettes, uncomplicated; F41.9 Anxiety disorder, unspecified; I49.9 Cardiac arrhythmia, unspecified; K21.9 Gastro-esophageal reflux disease without esophagitis; I10 Essential (primary) hypertension; F19.10 Other psychoactive substance abuse, uncomplicated; F15.10 Other stimulant abuse, uncomplicated; I49.3 Ventricular premature depolarization; K52.9 Noninfective gastroenteritis and colitis, unspecified; Z90.710 Acquired absence of both cervix and uterus; Z68.23 Body mass index [BMI] 23.0-23.9, adult; Z91.19 Patient's noncompliance with other medical treatment and regimen; Z82.49 Family history of ischemic heart disease and other diseases of the circulatory system; Z80.9 Family history of malignant neoplasm, unspecified
CPT/HCPCS: 74177; 84132; 87081; 88305; 88312; 88313; 93005; C9113; J2060; J2250; J2270; J2405; J3010; J7030; J7050

== ENCOUNTER 2020-10-05 18:35 | Emergency (ER) | payer MEDICAID ==
[~2020-10-05] VITALS: Ht 160 cm; Wt 61.8 kg
[~2020-10-05 18:35] MED LIST changes: +AMLO-258 PO; -AMLO10TA7 PO; -LABE200T6 PO
[2020-10-05] MEDS ORDERED: ACETAMINOPHEN 500 MG TABLET PO ONE (19:45)
[2020-10-05] MEDS ORDERED: IBUPROFEN 600 MG TABLET PO ONE (19:45)
[2020-10-05 21:30] VITALS: BP 176/100
== END 2020-10-05 21:51 | disposition home or self-care (01) ==
LOC: EMS 18:35
DX: I10 Essential (primary) hypertension (principal); F41.9 Anxiety disorder, unspecified; K21.9 Gastro-esophageal reflux disease without esophagitis; F17.210 Nicotine dependence, cigarettes, uncomplicated
CPT/HCPCS: 70450; 99284

== ENCOUNTER 2021-06-29 17:16 | Emergency (ER) | payer MEDICAID ==
[~2021-06-29] VITALS: Ht 160 cm; Wt 62.7 kg
[2021-06-29 19:01] LABS: BASOPHILS % (AUTO) 0.5 % (0.0-2.0); EOSINOPHILS % (AUTO) 3.2 % (1.0-6.0); HEMATOCRIT 41.4 % (36-46); HEMOGLOBIN 13.7 g/dL (12.0-16.0); LYMPHOCYTES # (AUTO) 2.8 K/uL (1.0-4.8); LYMPHOCYTES % (AUTO) 32.2 % (22.0-44.0); MEAN CORPUSCULAR HEMOGLOBIN 27.3 pg (26.0-34.0); MEAN CORPUSCULAR HGB CONC 33.1 G/dL (31.0-37.0); MEAN CORPUSCULAR VOLUME 82 fL (80-100); MONOCYTES # (AUTO) 0.9 K/uL (0.1-1.0); NEUTROPHILS # (AUTO) 4.6 K/uL (1.8-7.7); NEUTROPHILS % (AUTO) 53.1 % (40.0-70.0); PLATELET COUNT (AUTO) 296 K/uL (150-450); RED BLOOD CELL COUNT(AUTO) 5.02 MIL/uL (4.00-5.20); RED CELL DISTRIBUTION WIDTH 14.1 % (11.5-14.5)
[2021-06-29 19:14] LABS: ANION GAP 4 mmol/L (8-16); CALCIUM, TOTAL 9.9 mg/dL (8.8-10.5); CARBON DIOXIDE 30 mmol/L (22-29); CHLORIDE 103 mmol/L (98-107); CREATININE 0.81 mg/dL (0.60-1.30); GLOMERULAR FILTR. RATE CALC > 60 mL/min (>60); GLUCOSE,RANDOM 94 mg/dL (70-110); POTASSIUM 4.4 mmol/L (3.5-5.1); SODIUM SERUM 137 mmol/L (136-145); UREA NITROGEN, BLOOD 20 mg/dL (7-18)
[2021-06-29 19:35] VITALS: BP 146/76
== END 2021-06-29 19:51 | disposition home or self-care (01) ==
LOC: EMS 17:22
DX: R07.89 Other chest pain (principal); I10 Essential (primary) hypertension; K21.9 Gastro-esophageal reflux disease without esophagitis; F17.210 Nicotine dependence, cigarettes, uncomplicated; Z79.899 Other long term (current) drug therapy
CPT/HCPCS: 71045; 80048; 84484; 85025; 93005; 99285; 36415-L1; 36415-TC

== ENCOUNTER 2021-08-17 20:01 | Emergency (ER) | payer MEDICAID ==
[~2021-08-17] VITALS: Ht 160 cm; Wt 63.6 kg
[2021-08-17] MEDS ORDERED: ATOR10TA84 PO (20:12)
[2021-08-17] MEDS ORDERED: CARV25TA32 PO (20:12)
[2021-08-17] MEDS ORDERED: KETOROLAC TROMETHAMINE 30 MG/ML VIAL IVP ONE (20:30)
[2021-08-17] MEDS ORDERED: LORazepam 2 MG/ML VIAL IVP ONE (20:30)
[2021-08-17] MEDS ORDERED: ONDANSETRON HCL 4 MG/2 ML VIAL IVP ONE (20:30)
[2021-08-17] MEDS ORDERED: HYDR12.54 PO (20:31)
[2021-08-17] MEDS ORDERED: LOSA-382 PO (20:31)
[2021-08-17 20:59] LABS: BASOPHILS % (AUTO) 0.4 % (0.0-2.0); EOSINOPHILS % (AUTO) 1.2 % (1.0-6.0); HEMOGLOBIN 13.6 g/dL (12.0-16.0); LYMPHOCYTES # (AUTO) 2.2 K/uL (1.0-4.8); MEAN CORPUSCULAR HEMOGLOBIN 27.4 pg (26.0-34.0); MEAN CORPUSCULAR HGB CONC 33.1 G/dL (31.0-37.0); MEAN CORPUSCULAR VOLUME 83 fL (80-100); MONOCYTES # (AUTO) 0.8 K/uL (0.1-1.0); MONOCYTES % (AUTO) 7.5 % (2.0-9.0); NEUTROPHILS # (AUTO) 7.9 K/uL (1.8-7.7); NEUTROPHILS % (AUTO) 70.9 % (40.0-70.0); PLATELET COUNT (AUTO) 319 K/uL (150-450); RED BLOOD CELL COUNT(AUTO) 4.95 MIL/uL (4.00-5.20); RED CELL DISTRIBUTION WIDTH 14.3 % (11.5-14.5)
[2021-08-17 21:07] LABS: ANION GAP 10 mmol/L (8-16); CALCIUM, TOTAL 9.6 mg/dL (8.8-10.5); CARBON DIOXIDE 29 mmol/L (22-29); CHLORIDE 101 mmol/L (98-107); CREATININE 0.96 mg/dL (0.60-1.30); GLOMERULAR FILTR. RATE CALC > 60 mL/min (>60); GLUCOSE,RANDOM 87 mg/dL (70-110); POTASSIUM 3.7 mmol/L (3.5-5.1); SODIUM SERUM 140 mmol/L (136-145); UREA NITROGEN, BLOOD 11 mg/dL (7-18)
[2021-08-17 21:40] VITALS: BP 141/100
== END 2021-08-17 21:46 | disposition home or self-care (01) ==
LOC: EMS 20:01
DX: I10 Essential (primary) hypertension (principal); F15.10 Other stimulant abuse, uncomplicated; F41.9 Anxiety disorder, unspecified; R51.9 Headache, unspecified; K21.9 Gastro-esophageal reflux disease without esophagitis; F17.210 Nicotine dependence, cigarettes, uncomplicated
CPT/HCPCS: 36415; 71045; 80048; 84484; 85025; 93005; 96374; 96375; 99285; J1885; J2060; J2405

== ENCOUNTER 2023-01-20 09:50 | Emergency (ER) | payer MEDICAID ==
[~2023-01-20] VITALS: Ht 160 cm; Wt 61.4 kg
[~2023-01-20 09:50] MED LIST changes: +ATOR10TA PO; +CARV25TA32 PO; +HYDR12.54 PO; +LOSA-382 PO; -RANI150T7 PO
[2023-01-20 09:52] VITALS: BP 179/116; PULSE 100; RESP 18; TEMP 98.1
== END 2023-01-20 11:10 | disposition left against medical advice (07) ==
LOC: EMS 10:01
DX: R06.02 Shortness of breath (principal); R42 Dizziness and giddiness; Z53.21 Procedure and treatment not carried out due to patient leaving prior to being seen by health care provider
CPT/HCPCS: 99281; Z7502

== ENCOUNTER 2024-06-20 21:02 | Emergency (ER) | payer OTHER ==
[~2024-06-20] VITALS: Ht 160 cm; Wt 63.6 kg
[2024-06-20 21:11] VITALS: TEMP 98.1
[2024-06-20 23:27] VITALS: BP 119/71; PULSE 86; RESP 20; O2SAT 95
[2024-06-20] MEDS ORDERED: HYDR30CR39 TP (23:31)
[2024-06-20] MEDS ORDERED: CETI-450 PO (23:31)
== END 2024-06-20 23:54 | disposition home or self-care (01) ==
LOC: EMS 21:02
DX: R21 Rash and other nonspecific skin eruption (principal); I10 Essential (primary) hypertension; K21.9 Gastro-esophageal reflux disease without esophagitis; F17.210 Nicotine dependence, cigarettes, uncomplicated; Z79.899 Other long term (current) drug therapy
CPT/HCPCS: 99282; Z7502

== ENCOUNTER 2024-11-23 14:33 | Emergency (ER) | payer OTHER ==
[~2024-11-23] VITALS: Ht 162.6 cm; Wt 72.7 kg
[~2024-11-23 14:33] MED LIST changes: +CETI-432 PO; +HYDR30CR39 TP
[2024-11-23] MEDS ORDERED: ROSU10TA72 PO (14:43)
[2024-11-23 14:44] VITALS: TEMP 98
[2024-11-23] MEDS: PERTUSS(ACELL),DIPH,TET/PF 0.5 ML SYRINGE [ADULT] IM. ONE (16:52)
[2024-11-23] MEDS ORDERED: AMOX-457 PO (18:21)
[2024-11-23 18:45] VITALS: BP 145/87; PULSE 77; RESP 18; O2SAT 99
== END 2024-11-23 19:09 | disposition home or self-care (01) ==
LOC: EMS 14:33
DX: S83.241A Other tear of medial meniscus, current injury, right knee, initial encounter (principal); M25.561 Pain in right knee; I10 Essential (primary) hypertension; K21.9 Gastro-esophageal reflux disease without esophagitis; F17.210 Nicotine dependence, cigarettes, uncomplicated; Z98.890 Other specified postprocedural states; Z79.899 Other long term (current) drug therapy; W54.0XXA Bitten by dog, initial encounter; Y93.89 Activity, other specified; Y92.89 Other specified places as the place of occurrence of the external cause; Y99.8 Other external cause status
CPT/HCPCS: 29505; 90471; 90715; 99284